=== PATIENT | female | born 1985 | race Caucasian/White ===

== ENCOUNTER 2016-12-13 15:00 | Outpatient (RCR) | payer OTHER | END 2016-12-19 | disposition home or self-care (01) | LOC: M OUTALCOH 15:00 | PROVIDERS: ATTEND Psychiatry & Neurology Psychiatry | DX: F11.20 Opioid dependence, uncomplicated (principal); F12.20 Cannabis dependence, uncomplicated; F17.200 Nicotine dependence, unspecified, uncomplicated ==

== ENCOUNTER 2017-01-10 15:00 | Outpatient (RCR) | payer MEDICAID | END 2017-01-16 | LOC: M OUTALCOH 15:00 | PROVIDERS: ATTEND Psychiatry & Neurology Psychiatry | DX: F11.20 Opioid dependence, uncomplicated (principal); F12.20 Cannabis dependence, uncomplicated; F17.200 Nicotine dependence, unspecified, uncomplicated ==

== ENCOUNTER 2017-02-14 15:00 | Outpatient (RCR) | payer MEDICAID | END 2017-02-16 | LOC: M OUTALCOH 15:00 | PROVIDERS: ATTEND Psychiatry & Neurology Psychiatry | DX: F11.20 Opioid dependence, uncomplicated (principal); F12.20 Cannabis dependence, uncomplicated; F17.200 Nicotine dependence, unspecified, uncomplicated ==

== ENCOUNTER 2017-03-14 15:00 | Outpatient (RCR) | payer MEDICAID | END 2017-03-18 | LOC: M OUTALCOH 15:00 | PROVIDERS: ATTEND Psychiatry & Neurology Psychiatry | DX: F11.20 Opioid dependence, uncomplicated (principal); F12.20 Cannabis dependence, uncomplicated; F17.200 Nicotine dependence, unspecified, uncomplicated ==

== ENCOUNTER 2017-04-12 16:00 | Outpatient (RCR) | payer MEDICAID | END 2017-04-18 | LOC: M OUTALCOH 16:00 | PROVIDERS: ATTEND Psychiatry & Neurology Psychiatry | DX: F11.20 Opioid dependence, uncomplicated (principal); F12.20 Cannabis dependence, uncomplicated; F17.200 Nicotine dependence, unspecified, uncomplicated ==

== ENCOUNTER 2017-04-25 15:00 | Outpatient (RCR) | payer MEDICAID | END 2017-05-18 | LOC: M OUTALCOH 15:00 | PROVIDERS: ATTEND Psychiatry & Neurology Psychiatry | DX: F11.20 Opioid dependence, uncomplicated (principal); F12.20 Cannabis dependence, uncomplicated; F17.200 Nicotine dependence, unspecified, uncomplicated ==

== ENCOUNTER 2017-05-09 11:42 | Outpatient (RCR) | payer MEDICAID | END 2017-05-18 | LOC: M OUTALCOH 11:42 | PROVIDERS: ATTEND Psychiatry & Neurology Psychiatry | DX: F11.20 Opioid dependence, uncomplicated (principal); F12.20 Cannabis dependence, uncomplicated; F17.200 Nicotine dependence, unspecified, uncomplicated ==

== ENCOUNTER → 2017-05-30 | Outpatient (CLI) | payer MEDICAID, OTHER ==
[~2017-05-30] MED LIST: FLUO10CA8 PO; IBUP80TA PO; NEUR600T PO; SUBO8MIS SL; TRAZ-136 PO
[2017-05-30 19:43] LABS: ANION GAP 3 MEQ/L (8-16); BLOOD UREA NITROGEN 9 MG/DL (7-18); CALCIUM LEVEL 8.7 MG/DL (8.5-10.1); CARBON DIOXIDE LEVEL 31 MEQ/L (21-32); CHLORIDE LEVEL 107 MEQ/L (98-107); CREATININE FOR GFR 0.67 MG/DL (0.55-1.02); FREE T4 0.82 NG/DL (0.76-1.46); GLOMERULAR FILTRATION RATE > 60.0 (>60); GLUCOSE, FASTING 62 MG/DL (70-105); MAGNESIUM LEVEL 2.5 MG/DL (1.8-2.4); POTASSIUM SERUM 4.3 MEQ/L (3.5-5.1); SODIUM LEVEL 141 MEQ/L (136-145)
[2017-05-30 20:20] LABS: BASO # 0.1 K/mm3 (0.0-0.2); BASO % 1.3 % (0.0-1.0); EOS # 0.1 K/mm3 (0.0-0.50); EOS % 1.6 % (0.0-3.0); LARGE UNSTAINED CELL # 0.1 K/mm3 (0.0-0.4); LARGE UNSTAINED CELL % 1.6 % (0.0-4.0); LYMPH # 2.1 K/mm3 (1.5-4.5); LYMPH % 26.8 % (24.0-44.0); MEAN CORPUSCULAR HEMOGLOBIN 30.1 pg (27.0-33.0); MEAN CORPUSCULAR HGB CONC 33.3 g/dl (32.0-36.5); MEAN CORPUSCULAR VOLUME 90.4 fl (80.0-96.0); MONO # 0.5 K/mm3 (0.0-0.8); MONO % 6.3 % (0.0-5.0); NEUTROPHILS % 62.4 % (36.0-66.0); PLATELET COUNT, AUTOMATED 297 k/mm3 (150-450); RED CELL DISTRIBUTION WIDTH 12.6 % (11.5-14.5)
== END ==
LOC: M LAB 16:48
PROVIDERS: ATTEND Family Medicine
DX: R55 Syncope and collapse (principal)

== ENCOUNTER → 2017-06-06 | Outpatient (REF) | payer OTHER | LOC: M SFHCPLAZ 10:10 | PROVIDERS: ATTEND Family Medicine | DX: Z53.8 Procedure and treatment not carried out for other reasons (principal); E16.2 Hypoglycemia, unspecified; R11.0 Nausea ==

== ENCOUNTER → 2017-06-06 | Outpatient (CLI) | payer OTHER ==
[2017-06-06 13:14] LABS: FREE T4 0.9 NG/DL (0.76-1.46)
== END ==
LOC: M LAB 11:48
PROVIDERS: ATTEND Family Medicine
DX: E16.2 Hypoglycemia, unspecified (principal)

== ENCOUNTER 2017-06-27 14:57 | Outpatient (RCR) | payer MEDICAID | END 2017-07-19 | LOC: M OUTALCOH 14:57 | PROVIDERS: ATTEND Psychiatry & Neurology Psychiatry | DX: F11.20 Opioid dependence, uncomplicated (principal); F12.20 Cannabis dependence, uncomplicated; F17.200 Nicotine dependence, unspecified, uncomplicated ==

== ENCOUNTER → 2017-07-25 | Outpatient (REF) | payer OTHER | LOC: M LAB REF 17:24 | PROVIDERS: ATTEND Nurse Practitioner Women's Health | DX: Z01.419 Encounter for gynecological examination (general) (routine) without abnormal findings (principal); Z11.51 Encounter for screening for human papillomavirus (HPV); R87.613 High grade squamous intraepithelial lesion on cytologic smear of cervix (HGSIL) ==

== ENCOUNTER 2017-08-01 15:13 | Outpatient (RCR) | payer MEDICAID | END 2017-08-18 | LOC: M OUTALCOH 15:13 | PROVIDERS: ATTEND Psychiatry & Neurology Psychiatry | DX: F11.20 Opioid dependence, uncomplicated (principal); F17.200 Nicotine dependence, unspecified, uncomplicated; F12.20 Cannabis dependence, uncomplicated ==

== ENCOUNTER → 2017-08-08 | Outpatient (REF) | payer OTHER | LOC: M SFHCWAGY 11:57 | PROVIDERS: ATTEND Nurse Practitioner Women's Health | DX: R87.613 High grade squamous intraepithelial lesion on cytologic smear of cervix (HGSIL) (principal) ==

== ENCOUNTER 2017-09-01 19:53 | Emergency (ER) | payer MEDICAID, OTHER ==
[~2017-09-01] VITALS: Ht 177.8 cm; Wt 64.5 kg
[2017-09-01 19:53] VITALS: BP 116/67
[2017-09-01] MEDS ORDERED: TRAZ-136 PO (20:08)
[2017-09-01] MEDS ORDERED: SUBO8MIS SL (20:08)
[2017-09-01] MEDS ORDERED: NEUR600T PO (20:08)
[2017-09-01] MEDS ORDERED: FLUO10CA8 PO (20:08)
[2017-09-01] MEDS ORDERED: IBUP80TA PO (21:23)
[2017-09-01] MEDS ORDERED: IBUPROFEN 600 MG TAB PO ONE (21:30)
== END 2017-09-01 21:39 | disposition home or self-care (01) ==
LOC: M ED 19:53
DX: K02.9 Dental caries, unspecified (principal); R68.84 Jaw pain; K08.89 Other specified disorders of teeth and supporting structures; F17.210 Nicotine dependence, cigarettes, uncomplicated; Z88.1 Allergy status to other antibiotic agents

== ENCOUNTER 2017-09-19 16:18 | Outpatient (RCR) | payer MEDICAID | END 2017-10-18 | LOC: M OUTALCOH 16:18 | PROVIDERS: ATTEND Psychiatry & Neurology Psychiatry | DX: F11.20 Opioid dependence, uncomplicated (principal); F12.20 Cannabis dependence, uncomplicated; F17.200 Nicotine dependence, unspecified, uncomplicated ==

== ENCOUNTER 2018-01-04 11:03 | Emergency (ER) | payer OTHER | END 2018-01-04 11:41 | disposition left against medical advice (07) | LOC: M ED 11:03 | DX: Z53.21 Procedure and treatment not carried out due to patient leaving prior to being seen by health care provider (principal) ==

== ENCOUNTER 2018-09-29 15:38 | Emergency (ER) | payer OTHER ==
[2018-09-29] MEDS: AMOXICILLIN 500 MG CAP PO (15:57)
== END 2018-09-29 16:11 | disposition home or self-care (01) ==
LOC: M ED 15:38
DX: K04.7 Periapical abscess without sinus (principal); Z79.899 Other long term (current) drug therapy; Z79.890 Hormone replacement therapy; Z88.1 Allergy status to other antibiotic agents
CPT/HCPCS: 99282

== ENCOUNTER → 2020-03-12 | Outpatient (REF) | payer OTHER ==
[~2020-03-12] MED LIST changes: +AMOX500C PO; +EXCETAB81 PO; +FLUO10CA15 PO; -FLUO10CA8 PO; +FLUO20TA28 PO; -TRAZ-136 PO; +TRAZ-257 PO
[2020-03-12 12:48] LABS: HEMOGLOBIN 12.8 g/dl (12.0-15.5); MEAN CORPUSCULAR HEMOGLOBIN 28.7 pg (27.0-33.0); MEAN CORPUSCULAR HGB CONC 32.8 g/dl (32.0-36.5); MEAN CORPUSCULAR VOLUME 87.4 fl (80.0-96.0); PLATELET COUNT, AUTOMATED 318 10^3/uL (150-450); RED BLOOD COUNT 4.46 10^6/uL (4.00-5.40); WHITE BLOOD COUNT 8.4 10^3/uL (4.0-10.0)
[2020-03-12 13:03] LABS: ALBUMIN 3.4 GM/DL (3.2-5.2); ALT/SGPT 16 U/L (12-78); BILIRUBIN,TOTAL 0.6 MG/DL (0.2-1.0); BLOOD UREA NITROGEN 9 MG/DL (7-18); CALCIUM LEVEL 8.5 MG/DL (8.5-10.1); CARBON DIOXIDE LEVEL 26 MEQ/L (21-32); CHLORIDE LEVEL 106 MEQ/L (98-107); CHOLESTEROL LEVEL 189 MG/DL (<200); CREATININE FOR GFR 0.63 MG/DL (0.55-1.30); FERRITIN 7 NG/ML (8-252); GLOMERULAR FILTRATION RATE > 60.0 (>60); GLUCOSE, FASTING 87 MG/DL (70-100); HDL CHOLESTEROL 35 MG/DL (>40); IRON (FE) 91 UG/DL (50-170); LDL CHOLESTEROL 138 MG/DL (<100); MAGNESIUM LEVEL 2.1 MG/DL (1.8-2.4); NON-HDL-C 154 MG/DL; PERCENT SATURATION 21.8 % (13.2-45.0); POTASSIUM SERUM 4.7 MEQ/L (3.5-5.1); SODIUM LEVEL 136 MEQ/L (136-145); TOTAL IRON BINDING CAPACITY 418 UG/DL (250-450); TOTAL PROTEIN 7.1 GM/DL (6.4-8.2); TRIGLYCERIDES LEVEL 82 MG/DL (<150)
[2020-03-12 13:08] LABS: TOTAL 25(OH) VITAMIN D 15.7 NG/ML (30.0-100.0)
[2020-03-12 13:23] LABS: HEMOGLOBIN A1c 5.6 %
== END ==
LOC: M SFHCADAM 10:10
PROVIDERS: ATTEND Physician Assistant
DX: F51.04 Psychophysiologic insomnia (principal); R55 Syncope and collapse

== ENCOUNTER → 2020-09-22 | Outpatient (REF) | payer OTHER ==
[~2020-09-22] MED LIST changes: -FLUO10CA15 PO; +FLUO10CA16 PO
[2020-09-22 17:40] LABS: BASO # 0.1 10^3/uL (0.0-0.2); BASO % 0.8 % (0.0-1.0); EOS # 0.1 10^3/uL (0.0-0.5); EOS % 1.5 % (0.0-3.0); HEMATOCRIT 42.2 % (36.0-47.0); HEMOGLOBIN 14.3 g/dl (12.0-15.5); LYMPH # 2.6 10^3/uL (1.5-5.0); LYMPH % 34.7 % (24.0-44.0); MEAN CORPUSCULAR HEMOGLOBIN 30.6 pg (27.0-33.0); MEAN CORPUSCULAR HGB CONC 33.9 g/dl (32.0-36.5); MEAN CORPUSCULAR VOLUME 90.2 fl (80.0-96.0); MONO # 0.5 10^3/uL (0.0-0.8); MONO % 6.5 % (0.0-5.0); NEUTROPHILS # 4.2 10^3/uL (1.5-8.5); NEUTROPHILS % 56.2 % (36.0-66.0); PLATELET COUNT, AUTOMATED 318 10^3/uL (150-450); RED BLOOD COUNT 4.68 10^6/uL (4.00-5.40); WHITE BLOOD COUNT 7.5 10^3/uL (4.0-10.0)
[2020-09-22 20:07] LABS: HCG, SERUM QUALITATIVE NEGATIVE (NEGATIVE)
[2020-09-22 20:19] LABS: ALBUMIN 3.8 GM/DL (3.2-5.2); ALT/SGPT 14 U/L (12-78); BLOOD UREA NITROGEN 10 MG/DL (7-18); CALCIUM LEVEL 9.1 MG/DL (8.5-10.1); CARBON DIOXIDE LEVEL 28 MEQ/L (21-32); CHLORIDE LEVEL 104 MEQ/L (98-107); CREATININE FOR GFR 0.66 MG/DL (0.55-1.30); GLOMERULAR FILTRATION RATE > 60.0 (>60); GLUCOSE, FASTING 82 MG/DL (70-100); POTASSIUM SERUM 4.5 MEQ/L (3.5-5.1); SODIUM LEVEL 137 MEQ/L (136-145); TOTAL PROTEIN 7.2 GM/DL (6.4-8.2)
== END ==
LOC: M SFHCADAM 15:00
PROVIDERS: ATTEND Family Medicine
DX: R55 Syncope and collapse (principal)

== ENCOUNTER → 2022-12-01 | Outpatient (CLI) | payer OTHER ==
[~2022-12-01] MED LIST changes: -FLUO10CA16 PO; +FLUO10CA18 PO
[2022-12-01 14:33] LABS: HEMATOCRIT 35.9 % (36.0-47.0); HEMOGLOBIN 12.3 g/dl (12.0-15.5); MEAN CORPUSCULAR HEMOGLOBIN 30.8 pg (27.0-33.0); MEAN CORPUSCULAR HGB CONC 34.3 g/dl (32.0-36.5); PLATELET COUNT, AUTOMATED 263 10^3/uL (150-450); RED BLOOD COUNT 3.99 10^6/uL (4.00-5.40); WHITE BLOOD COUNT 7.5 10^3/uL (4.0-10.0)
[2022-12-01 15:29] LABS: HIV 1&2 SCREEN CENTAUR NEGATIVE (NEGATIVE)
[2022-12-01 15:37] LABS: HEPATITIS C VIRUS ABY INDEX 0.1 INDEX (<0.8)
[2022-12-01 16:12] LABS: GC DNA AMPLIFICATION NEGATIVE (NEGATIVE)
== END ==
LOC: M PLALAB 10:55
PROVIDERS: ATTEND Advanced Practice Midwife
DX: O09.521 Supervision of elderly multigravida, first trimester (principal)

== ENCOUNTER → 2022-12-01 | Outpatient (REF) | payer OTHER | LOC: M PLALAB 10:43 | PROVIDERS: ATTEND Advanced Practice Midwife | DX: O09.521 Supervision of elderly multigravida, first trimester (principal) ==

== ENCOUNTER → 2023-01-03 | Outpatient (REF) | payer OTHER | LOC: M PLALAB 07:33 | PROVIDERS: ATTEND Advanced Practice Midwife | DX: Z12.4 Encounter for screening for malignant neoplasm of cervix (principal); Z87.42 Personal history of other diseases of the female genital tract ==

== ENCOUNTER → 2023-01-31 | Outpatient (CLI) | payer OTHER | LOC: M WHC 09:01 | PROVIDERS: ATTEND Advanced Practice Midwife | DX: O09.522 Supervision of elderly multigravida, second trimester (principal) ==

== ENCOUNTER → 2023-01-31 | Outpatient (REF) | payer OTHER | LOC: M SFHCWAGY 12:50 | PROVIDERS: ATTEND Advanced Practice Midwife | DX: R33.9 Retention of urine, unspecified (principal) ==

== ENCOUNTER → 2023-03-01 | Outpatient (CLI) | payer OTHER ==
[2023-03-01 13:29] LABS: APPEARANCE, URINE CLOUDY (CLEAR); BACTERIA, URINE AUTO 1+ (NEGATIVE); BILIRUBIN, URINE AUTO NEGATIVE (NEGATIVE); BLOOD, URINE BLOOD 1+ (NEGATIVE); COLOR, URINE AMBER (YELLOW); GLUCOSE, URINE (UA) AUTO NEGATIVE (NEGATIVE); KETONE, URINE AUTO NEGATIVE (NEGATIVE); LEUKOCYTE ESTERASE, URINE AUTO TRACE (NEGATIVE); MUCUS, URINE MODERATE (NEGATIVE); NITRITE, URINE AUTO NEGATIVE (NEGATIVE); PROTEIN, URINE AUTO NEGATIVE (NEGATIVE); RBC, URINE AUTO 4 /HPF (0-3); SQUAMOUS EPITHELIAL CELL UR AU 20 /HPF (0-6); WBC, URINE AUTO 1 /HPF (0-3)
== END ==
LOC: M WHC 12:40
PROVIDERS: ATTEND Advanced Practice Midwife
DX: R30.0 Dysuria (principal)

== ENCOUNTER → 2023-03-07 | Outpatient (REF) | payer OTHER | LOC: M PLALAB 16:41 | PROVIDERS: ATTEND Advanced Practice Midwife | DX: R87.613 High grade squamous intraepithelial lesion on cytologic smear of cervix (HGSIL) (principal); R87.810 Cervical high risk human papillomavirus (HPV) DNA test positive ==

== ENCOUNTER → 2023-03-28 | Outpatient (CLI) | payer OTHER ==
[2023-03-28 14:32] LABS: HEMATOCRIT 29.2 % (36.0-47.0); MEAN CORPUSCULAR HEMOGLOBIN 31.9 pg (27.0-33.0); MEAN CORPUSCULAR HGB CONC 34.2 g/dl (32.0-36.5); MEAN CORPUSCULAR VOLUME 93.3 fl (80.0-96.0); PLATELET COUNT, AUTOMATED 232 10^3/uL (150-450); RED BLOOD COUNT 3.13 10^6/uL (4.00-5.40); WHITE BLOOD COUNT 8.6 10^3/uL (4.0-10.0)
[2023-03-28 15:55] LABS: GC DNA AMPLIFICATION NEGATIVE (NEGATIVE)
== END ==
LOC: M PLALAB 10:10
PROVIDERS: ATTEND Obstetrics & Gynecology
DX: Z34.92 Encounter for supervision of normal pregnancy, unspecified, second trimester (principal)

== ENCOUNTER → 2023-04-25 | Outpatient (CLI) | payer OTHER ==
[~2023-04-25] MED LIST changes: +ACET325C5 PO; +ASPI81TA26 PO; +FOLI400T13 PO; +GABA600T4 PO; +IRON1TAB2 PO; +TRAZ-189 PO
== END ==
LOC: M RAD 08:24
PROVIDERS: ATTEND Advanced Practice Midwife
DX: O09.522 Supervision of elderly multigravida, second trimester (principal)

== ENCOUNTER → 2023-05-30 | Outpatient (REF) | payer OTHER | LOC: M SFHCADAM 11:57 | PROVIDERS: ATTEND Physician Assistant | DX: E55.9 Vitamin D deficiency, unspecified (principal) ==

== ENCOUNTER → 2023-05-30 | Outpatient (REF) | payer OTHER | LOC: M PLALAB 05-29 13:10 | PROVIDERS: ATTEND Advanced Practice Midwife | DX: O09.523 Supervision of elderly multigravida, third trimester (principal) ==

== ENCOUNTER 2023-06-18 08:13 | Inpatient (IN) | payer OTHER ==
[2023-06-18] VITALS (38 sets, daily range): BP systolic 102–171; BP diastolic 55–93; TEMP 98.2; O2SAT 98
[~2023-06-18] VITALS: Ht 177.8 cm; Wt 77.1 kg
[2023-06-18] MEDS ORDERED: OXYTOCIN INJ 10UNITS/ML 1ML VIAL IM PRN (08:35)
[2023-06-18] MEDS ORDERED: METHYLERGONOVINE MALEATE 0.2MG/ML 1ML VIAL IM PRN (08:35)
[2023-06-18] MEDS ORDERED: OXYTOCIN DRIP 30 UNITS in IV 1 EA IV PRN (08:35)
[2023-06-18] MEDS ORDERED: TRANEXAMIC ACID INJection 1,000 MG in NS 100 ML IV PRN (08:35)
[2023-06-18] MEDS ORDERED: CARBOPROST TROMETHAMINE 250 MCG/ML AMP IM PRN (08:35)
[2023-06-18] MEDS ORDERED: LACTATED RINGER'S 1000 ML IV STA (08:35)
[2023-06-18] MEDS ORDERED: LIDOCAINE 1% MDV 20ML VIAL INFIL PRN (08:35)
[2023-06-18] MEDS ORDERED: HOME MED LIST COMPLETE! XX SCH (08:45)
[2023-06-18] MEDS ORDERED: OXYTOCIN DRIP 30 UNITS in IV 1 EA IV SCH (09:30)
[2023-06-18 09:39] LABS: HEMATOCRIT 32.9 % (36.0-47.0); HEMOGLOBIN 11.6 g/dl (12.0-15.5); MEAN CORPUSCULAR HEMOGLOBIN 31.6 pg (27.0-33.0); MEAN CORPUSCULAR HGB CONC 35.3 g/dl (32.0-36.5); MEAN CORPUSCULAR VOLUME 89.6 fl (80.0-96.0); PLATELET COUNT, AUTOMATED 224 10^3/uL (150-450); RED BLOOD COUNT 3.67 10^6/uL (4.00-5.40); WHITE BLOOD COUNT 9.4 10^3/uL (4.0-10.0)
[2023-06-18] MEDS: LR 1,000 ML IV SCH ×2 (10:06→19:07)
[2023-06-18] MEDS ORDERED: BUPR1SUB5 SL (13:51)
[2023-06-18] MEDS ORDERED: BUPRENORPHINE/NALOXONE 2-0.5MG SUBLINGUAL TABLET(SUBOXONE) PO SCH (14:00)
[2023-06-18] MEDS ORDERED: BUPRENORPHINE/NALOXONE 8-2MG SUBLINGUAL TABLET(SUBOXONE) PO SCH (14:00)
[2023-06-18] MEDS ORDERED: ENTER DRUG NAME HERE (PATIENT'S OWN MED) SL SCH (14:00)
[2023-06-18] MEDS ORDERED: PILL CUTTER 1 EACH XX PRN (14:10)
[2023-06-18] MEDS: BUPRENORPHINE/NALOXONE 8-2MG SUBLINGUAL TABLET(SUBOXONE) SL SCH (14:19)
[2023-06-18] MEDS ORDERED: NALOXONE INJ 0.4MG/1ML VIAL IV PRN (18:35)
[2023-06-18] MEDS ORDERED: FENTANYL/ROPIVACAINE/NACL BAG 100 ML EPIDURAL SCH (18:35)
[2023-06-18] MEDS ORDERED: LR 500 ML IV PRN (18:35)
[2023-06-18] MEDS ORDERED: diphenhydrAMINE 50MG/ML VIAL IV PRN (18:35)
[2023-06-18] MEDS ORDERED: EPIDURAL/PCA KEYS XX PRN (18:35)
[2023-06-18] MEDS ORDERED: ONDANSETRON 4MG 2ML VIAL IV PRN (18:35)
[2023-06-18] MEDS ORDERED: ePHEDrine SULFATE 25 MG/5 ML(5MG/ML) SYRINGE IVP PRN (18:35)
[2023-06-18] MEDS ORDERED: ACETAMINOPHEN TAB 650MG DOSE (2X325MG) PO PRN (21:30)
[2023-06-18] MEDS ORDERED: DOCUSATE SODIUM 100MG CAPSULE PO PRN (21:30)
[2023-06-18] MEDS ORDERED: ACETAMINOPHEN 500 MG TAB PO PRN (21:30)
[2023-06-18] MEDS ORDERED: IBUPROFEN 600MG TAB PO PRN (21:30)
[2023-06-18] MEDS ORDERED: IBUPROFEN 800 MG TAB PO PRN (21:30)
[2023-06-18] MEDS ORDERED: RHOGAM 300MCG (1500IU) INJ IM SCH (21:30)
[2023-06-18] MEDS ORDERED: ANUSOL HC CREAM 30GM TOP PRN (21:30)
[2023-06-18] MEDS ORDERED: DIBUCAINE 1% OINTMENT 30GM TOP PRN (21:30)
[2023-06-18] MEDS ORDERED: MOM 30ML SUSPENSION UDC PO PRN (21:30)
[2023-06-19] MEDS ORDERED: traZODone 100 MG TAB PO ONE (01:10)
[2023-06-19] MEDS ORDERED: GABAPENTIN 300 MG CAP PO ONE (01:10)
[2023-06-19 06:00] VITALS: BP 104/55; O2SAT 97
[2023-06-19] MEDS: BUPRENORPHINE/NALOXONE 8-2MG SUBLINGUAL TABLET(SUBOXONE) SL SCH ×2 (07:42→14:17)
[2023-06-19] MEDS: PRENATAL VITAMINS CHEWABLE TABLET PO SCH (07:42)
[2023-06-19 18:00] VITALS: BP 102/61; O2SAT 98
[2023-06-19] MEDS ORDERED: GABAPENTIN 400MG CAP PO SCH (21:00)
[2023-06-19] MEDS ORDERED: GABAPENTIN 300 MG CAP PO SCH (21:00)
[2023-06-19] MEDS ORDERED: traZODone 100 MG TAB PO SCH (21:00)
[2023-06-19] MEDS: FERROUS SULFATE 325MG TAB PO SCH (21:09)
[2023-06-20 06:07] VITALS: BP 91/55; O2SAT 97
[2023-06-20] MEDS: BUPRENORPHINE/NALOXONE 8-2MG SUBLINGUAL TABLET(SUBOXONE) SL SCH (08:33)
[2023-06-20] MEDS: FERROUS SULFATE 325MG TAB PO SCH (08:34)
[2023-06-20] MEDS: PRENATAL VITAMINS CHEWABLE TABLET PO SCH (08:34)
[2023-06-20] MEDS ORDERED: MEASLES,MUMPS,RUBELLA VACCINE INJ (MMR-II) SC.IMMUN ONE (09:00)
== END 2023-06-20 13:50 | disposition home or self-care (01) | DRG 560 ==
LOC: M LDI 08:13 → M OBS 23:40
PROVIDERS: ADMIT Advanced Practice Midwife; ATTEND Advanced Practice Midwife
PROC: 10E0XZZ Delivery of Products of Conception, External Approach (ICD-10-PCS; principal; 2023-06-18)
PROC: 3E0P7GC Introduction of Other Therapeutic Substance into Female Reproductive, Via Natural or Artificial Opening (ICD-10-PCS; 2023-06-18)
PROC: 0KQM0ZZ Repair Perineum Muscle, Open Approach (ICD-10-PCS; 2023-06-18)
PROC: 10907ZC Drainage of Amniotic Fluid, Therapeutic from Products of Conception, Via Natural or Artificial Opening (ICD-10-PCS; 2023-06-18)
DX: O43.123 Velamentous insertion of umbilical cord, third trimester (principal); O34.33 Maternal care for cervical incompetence, third trimester; O99.324 Drug use complicating childbirth; F11.20 Opioid dependence, uncomplicated; O99.344 Other mental disorders complicating childbirth; O99.334 Smoking (tobacco) complicating childbirth; F17.210 Nicotine dependence, cigarettes, uncomplicated; F41.9 Anxiety disorder, unspecified; F32.A Depression, unspecified; Z79.82 Long term (current) use of aspirin; Z79.899 Other long term (current) drug therapy; Z88.1 Allergy status to other antibiotic agents; Z3A.39 39 weeks gestation of pregnancy; O69.82X0 Labor and delivery complicated by other cord entanglement, without compression, not applicable or unspecified; O70.1 Second degree perineal laceration during delivery; Z37.0 Single live birth

== ENCOUNTER 2023-12-12 06:04 | Day surgery (SDC) | payer OTHER ==
[~2023-12-12] VITALS: Ht 177.8 cm; Wt 72.9 kg
[~2023-12-12 06:04] MED LIST changes: +BUPR1SUB5 SL; +LR 1,000 ML IV SCH
[2023-12-12] MEDS ORDERED: LR 1,000 ML IV SCH (06:40)
[2023-12-12 06:52] LABS: HEMATOCRIT 41.1 % (36.0-47.0); HEMOGLOBIN 13.6 g/dl (12.0-15.5); MEAN CORPUSCULAR HEMOGLOBIN 29.6 pg (27.0-33.0); MEAN CORPUSCULAR HGB CONC 33.1 g/dl (32.0-36.5); MEAN CORPUSCULAR VOLUME 89.3 fl (80.0-96.0); PLATELET COUNT, AUTOMATED 283 10^3/uL (150-450)
[2023-12-12] MEDS ORDERED: MIDAZOLAM INJ 2MG/2ML VIAL As Ordered ONE (07:07)
[2023-12-12] MEDS ORDERED: propofoL 200 MG/20 ML VIAL As Ordered ONE ×2 (07:08→07:58)
[2023-12-12] MEDS ORDERED: LIDOCAINE 2% 100MG/5ML SDV (FOR ANES.) As Ordered ONE (07:08)
[2023-12-12] MEDS ORDERED: ONDANSETRON 4MG 2ML VIAL As Ordered ONE (07:08)
[2023-12-12] MEDS ORDERED: fentaNYL 100 MCG/2 ML INJECTION As Ordered ONE (07:08)
[2023-12-12] MEDS ORDERED: KETOROLAC 60MG 2ML VIAL As Ordered ONE (07:08)
[2023-12-12] MEDS ORDERED: ACETAMINOPHEN 1000MG 100ML IV BAG As Ordered ONE (07:09)
[2023-12-12] MEDS ORDERED: LIDOCAINE W/EPINEPHRINE 1% 20ML VIAL As Ordered ONE (07:12)
[2023-12-12] MEDS ORDERED: ONDANSETRON 4MG 2ML VIAL IV PRN (08:35)
[2023-12-12] MEDS ORDERED: MORPHINE 2 MG/ML 1ML VIAL IV PRN (08:35)
[2023-12-12] MEDS ORDERED: ACETAMINOPHEN 500 MG TAB PO PRN (08:35)
[2023-12-12] MEDS ORDERED: METOCLOPRAMIDE INJ 10MG/2ML VIAL IV PRN (08:35)
[2023-12-12] MEDS ORDERED: NALOXONE INJ 0.4MG/1ML VIAL As Ordered ONE (09:47)
[2023-12-12 10:51] VITALS: BP 131/77; TEMP 98.2; O2SAT 100
== END 2023-12-12 11:05 | disposition home or self-care (01) ==
LOC: M SDC 06:04
PROVIDERS: ATTEND Obstetrics & Gynecology
DX: D06.9 Carcinoma in situ of cervix, unspecified (principal); N88.8 Other specified noninflammatory disorders of cervix uteri; N87.1 Moderate cervical dysplasia; D64.9 Anemia, unspecified; F41.9 Anxiety disorder, unspecified; F43.10 Post-traumatic stress disorder, unspecified; F11.11 Opioid abuse, in remission; Z79.899 Other long term (current) drug therapy; F17.210 Nicotine dependence, cigarettes, uncomplicated
CPT/HCPCS: 36415; 57522; 81025; 85027; 86850; 86900; 86901; 88305; 88307; J0131; J1885; J2250; J2310; J2405; J3010